=== PATIENT | male | born 1950 | race Caucasian/White ===

== ENCOUNTER 2021-05-17 10:37 | Observation (INO) ==
[2021-05-13 15:06] LABS: Basophils # (Auto) 0.02 K/mcL (0.00-0.30); Basophils % (Auto) 0.1 % (0.0-2.0); Eosinophils # (Auto) 0 K/mcL (0.00-0.70); Eosinophils % (Auto) 0 % (0.0-7.0); Hematocrit 39.8 % (40.1-51.0); Hemoglobin 13.1 g/dL (13.7-17.5); Lymphocytes # (Auto) 1.18 K/mcL (1.50-4.80); Lymphocytes % (Auto) 6.9 % (15.5-49.0); Mean Cell Volume 89.6 fL (80.0-100.0); Mean Corpuscular HGB Conc 32.9 g/dL (31.0-36.0); Mean Platelet Volume 11.4 fL (7.4-10.4); Monocytes # (Auto) 0.79 K/mcL (0.10-0.90); Monocytes % (Auto) 4.6 % (1.0-12.0); Neutrophils % (Auto) 88.4 % (38.0-78.0); Platelet Count 275 K/mcL (140-440); RBC 4.44 M/mcL (4.63-6.08); Red Cell Distribution Width 12.6 % (11.5-14.5); WBC 17.1 K/mcL (4.5-11.0)
[2021-05-13 15:34] LABS: INR 1.1 (0.9-1.1); Prothrombin Time 14.4 sec (11.9-14.5)
[2021-05-13 15:36] LABS: Blood Urea Nitrogen 20 mg/dL (8-23); Calcium 8.8 mg/dL (8.6-10.4); Carbon Dioxide 26 mmol/L (22-30); Chloride 104 mmol/L (96-108); Glomerular Filtration Rate 54; Glucose 148 mg/dL (70-105)
[2021-05-13 16:22] LABS: Appearance,Urine HAZY (Clear); Bilirubin,Urine Negative (Negative); Color,Urine AMBER; Culture Indicated,Urine No; Glucose,Urine (UA) Negative (Negative); Ketones,Urine Negative (Negative); Leukocyte Esterase,Urine Negative /uL (Negative); Nitrate,Urine Negative (Negative); Protein,Urine Negative (Negative); Specific Gravity,Urine 1.024 (1.000-1.035); Urine Blood Negative (Negative)
--- NOTE | 2021-05-13 18:35 | EKG ---
[facility] Test Date: 2021-05-13 Pat Name: Diego Lopes Department: [facility] Room: Gender: Male General Assistant: : [id number] Requested By: Joselo Palacio Order Number: [id number] Reading MD: Jasson Johnston Measurements Intervals [place] Rate: 66 P: 62 AR: 152 QRS: 70 QRSD: 96 T: 63 QT: 396 QTc: 415 Interpretive Statements SINUS RHYTHM Electronically Signed On 05-13-2021 18:35:30 PST by Jasson Johnstno /[id number]
[~2021-05-17 10:37] MED LIST: ceFAZolin 2 GM in DEXTROSE 5% IN WATER 50 ML IV SCH
[2021-05-17] MEDS ORDERED: ONDANSETRON 4 MG/2 ML VIAL ONE (13:08)
[2021-05-17] MEDS ORDERED: KETAMINE 50 MG/ML Syringe (ANEST) IV ONE (13:08)
[2021-05-17] MEDS ORDERED: LIDOCAINE HCL/PF 100 MG/5 ML SYRINGE IV ONE (13:08)
[2021-05-17] MEDS ORDERED: SUCCINYLCHOLINE 20 MG/ML ML IV ONE (13:08)
[2021-05-17] MEDS ORDERED: GLYCOPYRROLATE 0.2 MG/ML VIAL IV ONE (13:08)
[2021-05-17] MEDS ORDERED: TRANEXAMIC ACID 1,000 MG/10 ML VIAL ONE (13:08)
[2021-05-17] MEDS ORDERED: HYDROmorphone 1 MG/ML SYRINGE ONE (13:08)
[2021-05-17] MEDS ORDERED: MAGNESIUM SULFATE 2 GM/50 ML BAG IV ONE (13:08)
[2021-05-17] MEDS ORDERED: DEXAMETHASONE 10 MG/ML VIAL ONE (13:08)
[2021-05-17] MEDS ORDERED: PROPOFOL 200 MG/20 ML VIAL IV ONE (13:08)
[2021-05-17] MEDS ORDERED: MIDAZOLAM 2 MG/2 ML VIAL ONE (13:08)
[2021-05-17] MEDS ORDERED: THROMBIN (BOVINE) 5,000 UNIT VIAL TOPICAL ONE (13:42)
[2021-05-17] MEDS ORDERED: GELATIN SPONGE,ABSORBABLE 1 EACH SPONGE TOPICAL ONE (15:02)
[2021-05-17] MEDS ORDERED: ceFAZolin 1 GM VIAL IV ONE (16:30)
[2021-05-17] MEDS ORDERED: METHOCARBAMOL 1,000 MG/10 ML VIAL IV PRN (16:38)
[2021-05-17] MEDS ORDERED: PROMETHAZINE 25 MG/ML VIAL IV PRN ×2 (16:38→16:50)
[2021-05-17] MEDS ORDERED: MEPERIDINE 25 MG/ML VIAL IV PRN (16:38)
[2021-05-17] MEDS ORDERED: morphine 2 MG/ML VIAL IV PRN (16:38)
[2021-05-17] MEDS ORDERED: diphenhydrAMINE 50 MG/ML VIAL IV PRN (16:38)
[2021-05-17] MEDS ORDERED: ONDANSETRON 4 MG/2 ML VIAL IV PRN (16:38)
[2021-05-17] MEDS ORDERED: BENZOCAINE/MENTHOL 1 LOZENGE PO PRN ×2 (16:38→16:50)
[2021-05-17] MEDS ORDERED: IPRATROPIUM/ALBUTEROL 3 ML AMPUL.NEB NEB PRN (16:38)
[2021-05-17] MEDS ORDERED: ACETAMINOPHEN 1,000 MG/100 ML BAG IV ONE (16:38)
[2021-05-17] MEDS ORDERED: NALOXONE HCL 0.4 MG/ML VIAL IV PRN (16:38)
[2021-05-17] MEDS ORDERED: LACTATED RINGERS 250 ML IV PRN (16:38)
[2021-05-17] MEDS ORDERED: LACTATED RINGERS 1,000 ML IV SCH (16:45)
[2021-05-17] MEDS ORDERED: ONDANSETRON 4 MG ODT TABLET SL PRN (16:50)
[2021-05-17] MEDS ORDERED: METHOCARBAMOL 750 MG TABLET PO PRN ×2 (16:50→16:57)
--- NOTE | 2021-05-17 16:50 | Brief Operative Note ---
Brief Operative Note Date of procedure: 05/17/21 Pre-op diagnosis: recurrent disc herniation L3/4 Post-op diagnosis: same Procedure: lateral interbody fusion with PSIF Grafts/Implants: Yes Anesthesia: GETA Findings: extrusion Complications: none Surgeon: Estevan Sheikh Aboriginal Ceremonial Celebrant: Lizzette Pastrana Estimated blood loss (cc): 250 Specimens Removed/Pathology: none sent Condition: stable Disposition: PACU
[2021-05-17] MEDS ORDERED: BUPIVACAINE 0.25% 50 ML VIAL IJ ONE (16:54)
[2021-05-17] MEDS ORDERED: HYDROmorphone PCA 30 MG/30 ML PCA.VIAL IV PRN (16:58)
[2021-05-17] MEDS ORDERED: CYCLOBENZAPRINE 10 MG TABLET PO PRN (17:12)
--- NOTE | 2021-05-17 17:49 | XRay Report ---
CLINICAL INFORMATION: L3-L4 XLIF COMPARISON: None. FINDINGS: C-arm was utilized for L3-4 fusion. Total fluoroscopy time 0.2 minutes IMPRESSION: L3-4 fusion. Total fluoroscopy time 0.2 minutes Interpreted and Authenticated by: Pradip Lott 05/17/21
[2021-05-17] MEDS: DEXTROSE 5%-1/2NS 1,000 ML IV SCH (21:21)
[2021-05-17] MEDS: PREGABALIN 100 MG CAPSULE PO SCH (21:21)
[2021-05-17] MEDS: morphine 30 MG TAB.SR.12H PO SCH (21:22)
[2021-05-17] MEDS: DOCUSATE SODIUM 100 MG CAPSULE PO SCH (21:23)
[2021-05-17] MEDS: SENNOSIDES 1 TABLET PO SCH (21:23)
[2021-05-17] MEDS: 0.9 % SODIUM CHLORIDE 10 ML SYRINGE IV SCH (21:23)
[2021-05-17] MEDS: ceFAZolin 1 GM VIAL IV SCH (23:15)
[2021-05-18] MEDS: oxyCODONE/APAP 5/325MG TABLET PO PRN ×4 (03:23→20:26)
[2021-05-18] MEDS: DEXTROSE 5%-1/2NS 1,000 ML IV SCH ×3 (05:00→13:46)
[2021-05-18] MEDS: 0.9 % SODIUM CHLORIDE 10 ML SYRINGE IV SCH ×3 (05:01→22:21)
[2021-05-18] MEDS: morphine 30 MG TAB.SR.12H PO SCH ×3 (05:27→20:24)
[2021-05-18] MEDS: HYDROcodone/APAP 10/325MG TABLET PO PRN ×2 (06:56→12:11)
--- NOTE | 2021-05-18 07:25 | Orthopedic Progress Note ---
SUBJECTIVE Subjective Patient information: Note initiated : 05/18/21 at 7:21 am Service Date, if different from initiated Date: [] Patient: Diego Lopes 70 y/o M admitted on for L3-4 XLIF. Chief Complaint: [S/p L3-4 XLIF with posterior instrumented fusion] Patient is doing well and pain is well controlled. He denies any new onset lower extremity weakness/paresthesias. 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 Constitutional Vitals: Vital Signs Temp Pulse Resp BP Pulse Ox 97.7 F 59 L 12 136/77 95 05/18/21 03:11 05/18/21 03:11 05/18/21 03:11 05/18/21 03:11 05/18/21 03:11 Period Temp Pulse Resp BP Sys/Loving Pulse Ox Last 24 Hr 97.7 F-98.9 F 59-76 5-16 108-209/59-175 92-100 Intake and Output 05/17/21 05/18/21 05/18/21 21:59 05:59 13:59 Intake Total 2100 100 960 Output Total 2340 465 Balance -240 -365 960 Intake & Output: Intake & Output 05/17/21 05/18/21 05/18/21 21:59 05:59 13:59 Intake Total 2100 100 960 Output Total 2340 465 Balance -240 -365 960 Intake: IV 100 960 Dextrose 5%-1/2Ns IV Solution 1 960 ,000 ml @ 100 mls/hr IV .Q10H [facility] Rx#:[id number] Oral 100 IV - Manual Only 1999 Output: Drainage 35 35 Right Medial Back ABDI Drain 35 35 Drainage 30 30 Right Medial Back ABDI Drain 30 30 Urine Catheter Amount 2000 Uretheral (Odonnell) 1000 Void Amount 175 400 Estimated Blood Loss 100 Other: Urine Appearance Clear Clear Urine Color Bright Yellow Bright Yellow Urine Odor Normal Uretheral (Odonnell) Normal General appearance: average body habitus, cooperative and no acute distress Head Head exam: Present atraumatic, normal inspection and normocephalic Extremities Exam Extremities exam: Present neurovascular intact Back Exam Additional comments: Surgical incision is intact. Dressings are clean, dry, and intact. ABDI drain in place posteriorly. Neurological Exam Neurological exam: Present alert and oriented X3 Psychiatric Psychiatric exam: Present normal affect and normal mood OBJ DATA Labs CBC & Chem 7: 05/18/21 05:12 05/13/21 11:55 Labs: Abnormal Lab Results 05/18/21 05:12 Hgb 11.4 L Meds: Medications Hydrocodone Bitart/Acetaminophen (Hydrocodone/Apap 10/325mg Tablet) 1 tab PO QIDP PRN; Protocol PRN Reason: Pain Last Admin: 05/18/21 06:56 Dose: 1 tab Documented by: Cyclobenzaprine HCl (Cyclobenzaprine 10 Mg Tablet) 10 mg PO TIDP PRN PRN Reason: Muscle Spasm Docusate Sodium (Docusate Sodium 100 Mg Capsule) 100 mg PO BID [facility] Last Admin: 05/17/21 21:23 Dose: 100 mg Documented by: Hydrochlorothiazide (Hydrochlorothiazide 12.5 Mg Capsule) 12.5 mg PO DAILY [facility] Hydromorphone HCl (Hydromorphone Knee Bolter 30 Mg/30 Ml Knee Bolter.Vial) 30 mg IV UD PRN; Protocol PRN Reason: Pain Dextrose/Sodium Chloride (Dextrose 5%-1/2ns Iv Solution) 1,000 mls @ 100 mls/hr IV .Q10H [facility] Last Admin: 05/18/21 06:57 Dose: 100 mls/hr Documented by: Lisinopril (Lisinopril 10 Mg Tablet) 10 mg PO DAILY [facility] Methocarbamol (Methocarbamol 750 Mg Tablet) 750 mg PO Q6HP PRN PRN Reason: Muscle Spasm Morphine Sulfate (Morphine 30 Mg Tab.Sr.12h) 60 mg PO Q8H [facility]; Protocol Last Admin: 05/18/21 05:27 Dose: 60 mg Documented by: Ondansetron HCl (Ondansetron 4 Mg Odt Tablet) 4 mg SL Q4HP PRN; Protocol PRN Reason: Nausea And Vomiting Oxycodone/Acetaminophen (Oxycodone/Apap 5/325mg Tablet) 1 - 2 tab PO Q4HP PRN; Protocol PRN Reason: Per Pain Protocol Last Admin: 05/18/21 03:23 Dose: 2 tab Documented by: Vilazodone [Viibryd] (40 Mg Tablet) 1 dose PO QDAY [facility] Pregabalin (Pregabalin 100 Mg Capsule) 200 mg PO TID [facility] Last Admin: 05/17/21 21:21 Dose: 200 mg Documented by: Promethazine HCl (Promethazine 25 Mg/Ml Vial) 12.5 mg IV Q6HP PRN; Protocol PRN Reason: Nausea And Vomiting Senna (Sennosides 1 Tablet) 2 tab PO HS [facility] Last Admin: 05/17/21 21:23 Dose: Not Given Documented by: Sodium Chloride (0.9 % Sodium Chloride 10 Ml Syringe) 10 ml IV Q8 [facility] Last Admin: 05/18/21 05:01 Dose: Not Given Documented by: Throat Lozenges (Benzocaine/Menthol 1 Lozenge) 1 lozenge PO PRN PRN PRN Reason: Sore Throat A/P Assessment and plan (1) Lumbar stenosis: Assessment and plan: Ambulate with PT today. Patient will wear brace when up. D/c ABDI drain tomorrow. Likely discharge to home tomorrow am. Status: Chronic Time Spent With Patient Time: Total time spent is greater than 50% in coordination of care (as documented) at patient's floor/unit and/or counseling patient:
--- NOTE | 2021-05-18 07:31 | Operative Note ---
DATE OF OPERATION: 05/17/2021 PREOPERATIVE DIAGNOSIS: Recurrent disc herniation with instability at L3-L4, which is above L4 to the sacrum fusion. POSTOPERATIVE DIAGNOSIS: Recurrent disc herniation with instability at L3-L4, which is above L4 to the sacrum fusion. OPERATION PROPOSED: 1. Revision discectomy, L3-L4. 2. Removal of nonsegmental instrumentation, L4-L5. 3. Segmental instrumentation L3 to L5. 4. Posterior/posterolateral fusion, L3-L4. 5. Anterior interbody fusion via lateral retroperitoneal approach, L3-L4. 6. Application of structural allograft interspace, L3-L4. OPERATION PERFORMED: 1. Revision discectomy, L3-L4. 2. Removal of nonsegmental instrumentation, L4-L5. 3. Segmental instrumentation L3 to L5. 4. Posterior/posterolateral fusion, L3-L4. 5. Anterior interbody fusion via lateral retroperitoneal approach, L3-L4. 6. Application of structural allograft interspace, L3-L4. SURGEON: Estevan Sheikh M.D. ETHNOARCHAEOLOGY PROFESSOR: Lizzette Pastrana PA-C. This providers expertise and technical skill were required throughout the case. The CATHY assisted with preoperative coordination, intraoperative retraction, wound closure, and dressing and splint application, as well as postoperative documentation and care coordination. ANESTHESIA: INDICATIONS: This is a gentleman who has had a previous L4 to the sacrum fusion. He has done well until recently a new disc herniation at the L3-L4 level. He had a microdiscectomy at L3-L4 and then has had a recurrence. We have elected to proceed with a lumbar decompression and fusion. DESCRIPTION OF PROCEDURE: Informed consent was obtained. He was taken to the operating room and provided with appropriate anesthetic and prophylactic antibiotics. He was carefully positioned. His flank was prepped sterilely. A retroperitoneal approach of the interspace was performed. I then advanced through the psoas using an EMG monitor trocar. I sequentially dilated and placed a self-retaining retractor. I then docked the retractor to the interspace. I incised the annulus. A Jackson was brought across the disc space, freeing the contralateral annulus. I extensively curetted the disc space, debriding all disc material. A variety of trials were then used. I selected a 12 x 55 x 22 mm cage from [employer]. This was filled with morselized bone graft and impacted it into the site prepared for it. The wounds were irrigated thoroughly and closed. The patient was turned in the prone position. A midline incision was made. I dissected down to expose spinous process and lamina of L3, turned laterally exposing the transverse process of L3. The hardware at L4-L5 was debrided of soft tissue. I removed the alyx, removed the L4 pedicle screw. I placed a new pedicle screw at L and new pedicle screw at L4. A alyx was advanced into the top-loading pedicle screws L3 through L5. I then debrided through scar and mobilized the nerve root towards the midline. There was a large amount of extruded material that was readily identified filling the lateral recess at L3-L4. This material was debrided. I additionally decompressed posteriorly. At the end of the decompression, the central canal, lateral recess, and neural foramen seemed widely patent. The wounds were irrigated thoroughly. I then performed the posterior and posterolateral fusion by extensively decorticated the posterolateral aspect of the spine. I packed morcellized graft into and against the decorticated posterolateral aspect of the spine to allow for fusion. The procedure was completed by compressing across the interbody graft was tightened and torqued the alyx into the top-loading pedicle screws. The procedure was tolerated well. There were no complications. ESTIMATED BLOOD LOSS: 250 mL. GDD:magaly Job ID: [id number] Doc ID: [id number] Estevan Sheikh MD
[2021-05-18] MEDS: DOCUSATE SODIUM 100 MG CAPSULE PO SCH ×2 (08:15→20:26)
[2021-05-18] MEDS: LISINOPRIL 10 MG TABLET PO SCH (08:15)
[2021-05-18] MEDS: PREGABALIN 100 MG CAPSULE PO SCH ×3 (08:15→20:25)
[2021-05-18] MEDS: HYDROCHLOROTHIAZIDE 12.5 MG CAPSULE PO SCH (08:15)
[2021-05-18] MEDS ORDERED: LISINOPRIL/HCTZ 10/12.5MG TABLET PO SCH (09:00)
[2021-05-18] MEDS: SENNOSIDES 1 TABLET PO SCH (20:25)
[2021-05-19] MEDS: HYDROcodone/APAP 10/325MG TABLET PO PRN ×2 (01:29→10:46)
[2021-05-19] MEDS: morphine 30 MG TAB.SR.12H PO SCH (05:35)
[2021-05-19] MEDS: 0.9 % SODIUM CHLORIDE 10 ML SYRINGE IV SCH (05:35)
--- NOTE | 2021-05-19 07:10 | Orthopedic Progress Note ---
SUBJECTIVE Subjective Patient information: Note initiated : 05/19/21 at 7:07 am Service Date, if different from initiated Date: [] Patient: Diego Lopes 70 y/o M admitted on 05/18/21 for L3-4 XLIF. Chief Complaint: [S/P L3-4 XLIF WITH POSTERIOR INSTRUMENTATION] PATIENT IS DOING WELL AND AMBULATES WELL. 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 Constitutional Vitals: Vital Signs Temp Pulse Resp BP Pulse Ox 98.0 F 62 16 118/69 96 05/19/21 03:33 05/19/21 03:33 05/19/21 03:33 05/19/21 03:33 05/19/21 03:33 Period Temp Pulse Resp BP Sys/Loving Pulse Ox Last 24 Hr 97.4 F-98.2 F 59-84 10-18 109-176/60-93 95-97 Intake and Output 05/18/21 05/19/21 05/19/21 21:59 05:59 13:59 Intake Total 1360 400 Output Total 325 35 Balance 1035 365 Weight 187 lb Intake & Output: Intake & Output 05/18/21 05/19/21 05/19/21 21:59 05:59 13:59 Intake Total 1360 400 Output Total 325 35 Balance 1035 365 Weight 187 lb Intake: IV 1000 Dextrose 5%-1/2Ns IV Solution 1 1000 ,000 ml @ 100 mls/hr IV .Q10H [facility] Rx#:[id number] Oral 360 400 Output: Drainage 25 10 Right Medial Back ABDI Drain 25 10 Drainage 25 Right Medial Back ABDI Drain 25 Void Amount 300 0 Other: Meal Dinner Percent of Meal Consumed 100% Feeding Ability Independent Urine Appearance Clear Urine Color Bright Yellow Urine Odor Normal Uretheral (Odonnell) Normal Stool Size Small Stool Color Brown Stool Consistency Soft Formed General appearance: cooperative and no acute distress Back Exam Back exam: Present tenderness (POSTERIOR SURGICAL INCISION) Additional comments: SURGICAL DRESSING IS INTACT, CLEAN, AND DRY. ABDI DRAIN PRESENT Neurological Exam Neurological exam: Present alert and oriented X3 Psychiatric Psychiatric exam: Present normal affect and normal mood OBJ DATA Labs CBC & Chem 7: 05/18/21 05:12 05/13/21 11:55 Labs: Abnormal Lab Results 05/18/21 05:12 Hgb 11.4 L Meds: Medications Hydrocodone Bitart/Acetaminophen (Hydrocodone/Apap 10/325mg Tablet) 1 tab PO QIDP PRN; Protocol PRN Reason: Pain Last Admin: 05/19/21 01:29 Dose: 1 tab Documented by: Cyclobenzaprine HCl (Cyclobenzaprine 10 Mg Tablet) 10 mg PO TIDP PRN PRN Reason: Muscle Spasm Docusate Sodium (Docusate Sodium 100 Mg Capsule) 100 mg PO BID [facility] Last Admin: 05/18/21 20:26 Dose: 100 mg Documented by: Hydrochlorothiazide (Hydrochlorothiazide 12.5 Mg Capsule) 12.5 mg PO DAILY [facility] Last Admin: 05/18/21 08:15 Dose: 12.5 mg Documented by: Hydromorphone HCl (Hydromorphone Ex Assistant/Program Director 30 Mg/30 Ml Ex Assistant/Program Director.Vial) 30 mg IV UD PRN; Protocol PRN Reason: Pain Lisinopril (Lisinopril 10 Mg Tablet) 10 mg PO DAILY [facility] Last Admin: 05/18/21 08:15 Dose: 10 mg Documented by: Methocarbamol (Methocarbamol 750 Mg Tablet) 750 mg PO Q6HP PRN PRN Reason: Muscle Spasm Morphine Sulfate (Morphine 30 Mg Tab.Sr.12h) 60 mg PO Q8H [facility]; Protocol Last Admin: 05/19/21 05:35 Dose: 60 mg Documented by: Ondansetron HCl (Ondansetron 4 Mg Odt Tablet) 4 mg SL Q4HP PRN; Protocol PRN Reason: Nausea And Vomiting Oxycodone/Acetaminophen (Oxycodone/Apap 5/325mg Tablet) 1 - 2 tab PO Q4HP PRN; Protocol PRN Reason: Per Pain Protocol Last Admin: 05/18/21 20:26 Dose: 2 tab Documented by: Vilazodone [Viibryd] (40 Mg Tablet) 1 dose PO QDAY [facility] Last Admin: 05/18/21 08:31 Dose: Not Given Documented by: Pregabalin (Pregabalin 100 Mg Capsule) 200 mg PO TID [facility] Last Admin: 05/18/21 20:25 Dose: 200 mg Documented by: Promethazine HCl (Promethazine 25 Mg/Ml Vial) 12.5 mg IV Q6HP PRN; Protocol PRN Reason: Nausea And Vomiting Senna (Sennosides 1 Tablet) 2 tab PO HS [facility] Last Admin: 05/18/21 20:25 Dose: 2 tab Documented by: Sodium Chloride (0.9 % Sodium Chloride 10 Ml Syringe) 10 ml IV Q8 [facility] Last Admin: 05/19/21 05:35 Dose: 10 ml Documented by: Throat Lozenges (Benzocaine/Menthol 1 Lozenge) 1 lozenge PO PRN PRN PRN Reason: Sore Throat Last Admin: 05/18/21 20:26 Dose: 1 lozenge Documented by: A/P Assessment and plan (1) Lumbar stenosis: Assessment and plan: DISCHARGE TO HOME TODAY. WILL RESUME HOME PAIN REGIMEN. MAY AMBULATE TOLERATED WITH BRACE. F/U IN 2 WEEKS WITH ME. Status: Chronic Time Spent With Patient Time: Total time spent is greater than 50% in coordination of care (as documented) at patient's floor/unit and/or counseling patient:
[2021-05-19] MEDS: oxyCODONE/APAP 5/325MG TABLET PO PRN (07:34)
[2021-05-19] MEDS: DOCUSATE SODIUM 100 MG CAPSULE PO SCH (08:17)
[2021-05-19] MEDS: PREGABALIN 100 MG CAPSULE PO SCH (08:17)
[2021-05-19] MEDS: LISINOPRIL 10 MG TABLET PO SCH (08:17)
[2021-05-19] MEDS: HYDROCHLOROTHIAZIDE 12.5 MG CAPSULE PO SCH (08:17)
== END 2021-05-19 10:57 | disposition home or self-care (01) ==
LOC: SUR 10:37 → MEDSUR 10:37 → EDSTATUS 12:00 → MEDSUR 18:10
PROVIDERS: ADMIT Orthopaedic Surgery Orthopaedic Surgery of the Spine; ATTEND Orthopaedic Surgery Orthopaedic Surgery of the Spine